=== PATIENT | male | born 1995 | race African-American/Black ===

== ENCOUNTER 2018-11-25 20:31 | Emergency (ER) | payer OTHER, SELFPAY | END 2018-11-25 21:00 | disposition home or self-care (01) | LOC: ERS 20:31 | DX: L02.214 Cutaneous abscess of groin (principal) | CPT/HCPCS: 99282 ==

== ENCOUNTER 2019-06-04 11:17 | Emergency (ER) | payer SELFPAY | END 2019-06-04 11:31 | disposition home or self-care (01) | LOC: ERS 11:17 | DX: L73.9 Follicular disorder, unspecified (principal) | CPT/HCPCS: 99283 ==

== ENCOUNTER 2020-01-15 11:04 | Emergency (ER) | payer SELFPAY | END 2020-01-15 13:20 | disposition left against medical advice (07) | LOC: ERS 11:04 | DX: Z53.21 Procedure and treatment not carried out due to patient leaving prior to being seen by health care provider (principal) ==

== ENCOUNTER 2020-01-16 14:40 | Emergency (ER) | payer SELFPAY | END 2020-01-16 15:05 | disposition home or self-care (01) | LOC: ERS 14:40 | DX: L02.214 Cutaneous abscess of groin (principal) | CPT/HCPCS: 99282 ==

== ENCOUNTER 2020-04-21 12:15 | Emergency (ER) | payer SELFPAY ==
[2020-04-21] MEDS ORDERED: Morphine 4 MG/ML VIAL ONE (12:49)
[2020-04-21] MEDS ORDERED: Ondansetron PF 4 MG/2 ML Vial ONE (12:49)
--- NOTE | 2020-04-21 14:02 | RAD ---
XR Shoulder Rt 2 View STANDARD HISTORY: Reduction of right shoulder dislocation FINDINGS: There has been interval reduction of the right shoulder dislocation noted on earlier exam of 12:39 PM . Anatomic alignment has been restored. No acute fracture is seen.
--- NOTE | 2020-04-21 14:32 | RAD ---
RIGHT SHOULDER: 04/21/20 Three views. HISTORY: Shoulder injury with pain. There is an anterior shoulder dislocation. AC joint appears normally aligned. No fracture identified on these views. IMPRESSION: Anterior shoulder dislocation. POS: [facility]
== END 2020-04-21 14:20 | disposition home or self-care (01) ==
LOC: ERS 12:15
DX: S43.004A Unspecified dislocation of right shoulder joint, initial encounter (principal); X50.9XXA Other and unspecified overexertion or strenuous movements or postures, initial encounter
CPT/HCPCS: 96374; 96375; J2270; J2405